=== PATIENT | female | born 1950 | race Caucasian/White ===

== ENCOUNTER 2018-02-12 10:10 | Inpatient (IN) | payer MEDICARE, OTHER ==
[~2018-02-12 10:10] MED LIST: ACETAMINOPHEN 500 MG TAB PO; CEFAZOLIN 1 GM/50 ML (PMX) 50 ML IVPB; DEXAMETHASONE 4 MG/ML 1 ML INJ IV; LANSOPRAZOLE 30 MG CAP PO; METOCLOPRAMIDE 10 MG INJ; ONDANSETRON 4 MG INJ IV; TRANEXAMIC ACID 1,000 MG in NS 100 ML INTRA-OP X1 IVPB; oxyCODONE (CR) 10 MG TAB [oxyCONTIN] PO
[2018-02-12 10:55] LABS: ADD MAN DIFF? NO
[2018-02-12 10:58] LABS: WHITE BLOOD COUNT 4.2 10^3/ul (4.8-10.8)
[2018-02-12 10:58] LABS: BASOPHILS % 0.2 % (0.0-2.0); EOSINOPHILS # 0.1 10^3/ul (0.0-0.5); EOSINOPHILS % 1.2 % (0.0-7.0); HEMATOCRIT 37.4 % (37.0-47.0); HEMOGLOBIN 12.7 g/dl (12.0-16.0); LYMPHOCYTES # 1.6 10^3/ul (0.8-2.9); LYMPHOCYTES % 37.5 % (15.0-51.0); MEAN CORPUSCULAR VOLUME 85.4 fl (82.0-101.0); MEAN PLATELET VOLUME 9.2 fl (7.4-10.4); MONOCYTE # 0.3 10^3/ul (0.3-0.9); MONOCYTES % 8.1 % (0.0-11.0); NEUTROPHIL # 2.2 10^3/ul (1.6-7.5); NEUTROPHILS % 52.8 % (39.0-77.0); PLATELET COUNT 245 10^3/UL (140-415); RED BLOOD COUNT 4.38 10^6/ul (4.20-5.40); RED CELL DISTRIBUTION WIDTH 13.3 % (11.5-14.5)
[2018-02-12 11:04] LABS: HOLD TRANSMISSIONS 1
[2018-02-12] MEDS ORDERED: FENTAnyl 50 MCG/ML VIAL (11:11)
[2018-02-12] MEDS ORDERED: MIDAZOLAM 1 MG/ML 2 ML INJ (11:12)
[2018-02-12] MEDS ORDERED: PROPOFOL 20 ML (11:25)
[2018-02-12] MEDS ORDERED: ONDANSETRON 4 MG INJ (11:26)
[2018-02-12] MEDS ORDERED: LIDOCAINE 2% (SDV) 5 ML INJ (11:26)
[2018-02-12] MEDS ORDERED: hydrALAzine 20 MG INJ (11:54)
[2018-02-12] MEDS ORDERED: CEFAZOLIN 1 GM INJ ×2 (11:56→13:47)
[2018-02-12] MEDS ORDERED: BUPIVACAINE 0.75%/DEXT (SPINAL) 2 ML INJ ×2 (12:04→13:19)
[2018-02-12] MEDS ORDERED: PROVENTIL HFA 6.7GM INHALER (12:41)
[2018-02-12] MEDS ORDERED: BISACODYL 10 MG SUPP PR (13:00)
[2018-02-12] MEDS ORDERED: NA PHOSPHATE/BIPHOS 133 ML ENEMA PR (13:00)
[2018-02-12] MEDS ORDERED: oxyCODONE 5 MG TAB PO (13:00)
[2018-02-12] MEDS ORDERED: BETHANECHOL 25 MG TAB PO (13:00)
[2018-02-12] MEDS ORDERED: DIPHENHYDRAMINE 50 MG INJ IV ×2 (13:00→13:30)
[2018-02-12] MEDS ORDERED: NALOXONE (0.4 MG/ML) INJ IV (13:00)
[2018-02-12] MEDS ORDERED: MAGNESIUM HYDROXIDE 30ML CUP PO (13:00)
[2018-02-12] MEDS ORDERED: SENNA/DOCUSATE NA (8.6MG/50MG) TAB PO (13:00)
[2018-02-12] MEDS: TRANEXAMIC ACID 1,000 MG in NS 100 ML PRE-OP X1 IVPB (13:22)
[2018-02-12] MEDS ORDERED: hydrALAzine 20 MG INJ IV (13:30)
[2018-02-12] MEDS ORDERED: HYDROmorphONE 1 MG/5 ML IV SYRINGE IV ×3 (13:30)
[2018-02-12] MEDS ORDERED: MEPERIDINE 25 MG INJ IV (13:30)
[2018-02-12] MEDS ORDERED: IPRATROPIUM (NEB) 0.5 MG/2.5 ML AMP HHN (13:30)
[2018-02-12] MEDS ORDERED: LEVALBUTEROL (NEB) 1.25 MG/0.5 ML AMP HHN (13:30)
[2018-02-12] MEDS ORDERED: FENTAnyl 50 MCG/ML VIAL IV ×2 (13:30)
[2018-02-12] MEDS ORDERED: ROPIVACAINE 0.5 % 30 ML VIAL (13:33)
[2018-02-12] MEDS: POLYMYXIN B 500000 UNIT INJ (14:22)
[2018-02-12] MEDS: BACITRACIN 50000 UNITS INJ IRR (14:22)
[2018-02-12] MEDS: HIP PAIN COCKTAIL (CEFUROXIME) INJ (14:27)
[2018-02-12] MEDS: LACTATED RINGER'S 1,000 ML IV* ×2 (14:29→15:23)
[2018-02-12] MEDS: ASPIRIN 81 MG TAB PO ×2 (15:51→20:35)
[2018-02-12] MEDS: ONDANSETRON 4 MG INJ IV ×3 (15:52→21:34)
[2018-02-12] MEDS: DOCUSATE SODIUM 100 MG CAP PO (15:52)
[2018-02-12] MEDS: CEFAZOLIN 1 GM/50 ML (PMX) 50 ML IVPB ×2 (15:53→23:57)
[2018-02-12] MEDS: LABETALOL HCL 20MG INJ IV (16:23)
[2018-02-12] MEDS: GABAPENTIN 100 MG CAP PO ×2 (17:15→20:35)
[2018-02-12] MEDS: SOD CHLORIDE 0.9% 1,000 ML IV (17:16)
[2018-02-13] MEDS: SOD CHLORIDE 0.9% 1,000 ML IV (03:46)
[2018-02-13] MEDS: ONDANSETRON 4 MG INJ IV ×3 (04:00→13:26)
[2018-02-13 05:25] LABS: ADD MAN DIFF? NO
[2018-02-13 05:33] LABS: WHITE BLOOD COUNT 7.5 10^3/ul (4.8-10.8)
[2018-02-13 05:33] LABS: HEMATOCRIT 27.3 % (37.0-47.0); HEMOGLOBIN 9.1 g/dl (12.0-16.0); LYMPHOCYTES % 12.9 % (15.0-51.0); MEAN CORPUSCULAR HEMOGLOBIN 29.2 pg (29.0-33.0); MEAN CORPUSCULAR HGB CONC 33.3 g/dl (32.0-37.0); MEAN CORPUSCULAR VOLUME 87.5 fl (82.0-101.0); MEAN PLATELET VOLUME 9.6 fl (7.4-10.4); MONOCYTE # 0.6 10^3/ul (0.3-0.9); MONOCYTES % 7.3 % (0.0-11.0); NEUTROPHILS % 79.7 % (39.0-77.0); PLATELET COUNT 206 10^3/UL (140-415); RED BLOOD COUNT 3.12 10^6/ul (4.20-5.40); RED CELL DISTRIBUTION WIDTH 13.4 % (11.5-14.5)
[2018-02-13 05:58] LABS: ANION GAP 7 (5-13); BLOOD UREA NITROGEN 15 mg/dl (7-20); CARBON DIOXIDE 24 mmol/L (21-31); CHLORIDE 109 mmol/L (97-110); CREATININE 0.31 mg/dl (0.44-1.00); Estimated GFR > 60 mL/min (>60); GLUCOSE 114 mg/dl (70-220); POTASSIUM 3.8 mmol/L (3.5-5.1); SODIUM 140 mmol/L (135-144)
[2018-02-13] MEDS: CEFAZOLIN 1 GM/50 ML (PMX) 50 ML IVPB (07:54)
[2018-02-13] MEDS: FERROUS FUMARATE (SR) TAB PO ×2 (08:50→20:20)
[2018-02-13] MEDS: LISINOPRIL 20 MG TAB PO (08:50)
[2018-02-13] MEDS: CELECOXIB 200 MG CAP PO ×2 (08:50→20:19)
[2018-02-13] MEDS: ASPIRIN (EC) 81 MG TAB PO ×2 (08:51→20:20)
[2018-02-13] MEDS: GABAPENTIN 100 MG CAP PO ×3 (08:51→20:20)
[2018-02-13] MEDS: oxyCODONE 5 MG TAB PO ×2 (08:53→18:18)
[2018-02-13] MEDS: DOCUSATE SODIUM 100 MG CAP PO ×2 (08:54→20:20)
[2018-02-13] MEDS ORDERED: ASPIRIN (EC) 81 MG TAB PO (09:00)
[2018-02-13 14:27] LABS: ADD MAN DIFF? NO
[2018-02-13 14:30] LABS: WHITE BLOOD COUNT 7.5 10^3/ul (4.8-10.8)
[2018-02-13 14:30] LABS: BASOPHILS % 0.1 % (0.0-2.0); EOSINOPHILS % 0.1 % (0.0-7.0); HEMOGLOBIN 9.2 g/dl (12.0-16.0); LYMPHOCYTES # 1.1 10^3/ul (0.8-2.9); LYMPHOCYTES % 15.1 % (15.0-51.0); MEAN CORPUSCULAR HEMOGLOBIN 28.8 pg (29.0-33.0); MEAN CORPUSCULAR HGB CONC 32.9 g/dl (32.0-37.0); MEAN CORPUSCULAR VOLUME 87.5 fl (82.0-101.0); MEAN PLATELET VOLUME 9.3 fl (7.4-10.4); MONOCYTE # 0.7 10^3/ul (0.3-0.9); MONOCYTES % 9.2 % (0.0-11.0); NEUTROPHIL # 5.6 10^3/ul (1.6-7.5); NEUTROPHILS % 75.2 % (39.0-77.0); PLATELET COUNT 223 10^3/UL (140-415); RED CELL DISTRIBUTION WIDTH 13.6 % (11.5-14.5)
[2018-02-13] MEDS: ATORVASTATIN 40 MG TAB PO (20:19)
[2018-02-14 05:23] LABS: ADD MAN DIFF? NO
[2018-02-14 05:30] LABS: BASOPHILS % 0.2 % (0.0-2.0); EOSINOPHILS % 0.3 % (0.0-7.0); HEMATOCRIT 27.5 % (37.0-47.0); HEMOGLOBIN 9.2 g/dl (12.0-16.0); LYMPHOCYTES # 1.5 10^3/ul (0.8-2.9); LYMPHOCYTES % 24.6 % (15.0-51.0); MEAN CORPUSCULAR HEMOGLOBIN 29.4 pg (29.0-33.0); MEAN CORPUSCULAR HGB CONC 33.5 g/dl (32.0-37.0); MEAN CORPUSCULAR VOLUME 87.9 fl (82.0-101.0); MEAN PLATELET VOLUME 9.3 fl (7.4-10.4); MONOCYTE # 0.7 10^3/ul (0.3-0.9); MONOCYTES % 11.6 % (0.0-11.0); NEUTROPHIL # 3.9 10^3/ul (1.6-7.5); NEUTROPHILS % 62.8 % (39.0-77.0); PLATELET COUNT 200 10^3/UL (140-415); RED BLOOD COUNT 3.13 10^6/ul (4.20-5.40); RED CELL DISTRIBUTION WIDTH 13.8 % (11.5-14.5)
[2018-02-14 05:30] LABS: WHITE BLOOD COUNT 6.2 10^3/ul (4.8-10.8)
[2018-02-14] MEDS: PANTOPRAZOLE (EC) 40 MG TAB PO (05:53)
[2018-02-14] MEDS: oxyCODONE 5 MG TAB PO (05:57)
[2018-02-14 06:17] LABS: ANION GAP 8 (5-13); BLOOD UREA NITROGEN 11 mg/dl (7-20); CALCIUM 8.8 mg/dl (8.4-10.2); CARBON DIOXIDE 27 mmol/L (21-31); CHLORIDE 104 mmol/L (97-110); CREATININE 0.33 mg/dl (0.44-1.00); Estimated GFR > 60 mL/min (>60); GLUCOSE 126 mg/dl (70-220); POTASSIUM 3.4 mmol/L (3.5-5.1); SODIUM 139 mmol/L (135-144)
[2018-02-14] MEDS: DOCUSATE SODIUM 100 MG CAP PO (08:58)
[2018-02-14] MEDS: GABAPENTIN 100 MG CAP PO ×2 (08:58→14:57)
[2018-02-14] MEDS: FERROUS FUMARATE (SR) TAB PO (08:58)
[2018-02-14] MEDS: CELECOXIB 200 MG CAP PO (08:58)
[2018-02-14] MEDS: ASPIRIN (EC) 81 MG TAB PO (08:58)
[2018-02-14] MEDS: LISINOPRIL 20 MG TAB PO (08:59)
== END 2018-02-14 16:10 | disposition home health service (06) | DRG 470 ==
LOC: REC 10:10 → MS1 17:00
PROVIDERS: Orthopaedic Surgery Adult Reconstructive Orthopaedic Surgery
PROC: 0SRC069 Replacement of Right Knee Joint with Oxidized Zirconium on Polyethylene Synthetic Substitute, Cemented, Open Approach (ICD-10-PCS; principal; 2018-02-12 13:22)
DX: M17.11 Unilateral primary osteoarthritis, right knee (principal); I10 Essential (primary) hypertension; Z79.899 Other long term (current) drug therapy
CPT/HCPCS: 73560; 80048; 85025; 87081; 88304; 88311; 97110; 97116; 97161; 97166; 97530